=== PATIENT | female | born 1975 | race Caucasian/White ===

== ENCOUNTER 2023-11-21 18:30 | Inpatient (IN) | payer OTHER ==
[~2023-11-21] VITALS: Ht 157.5 cm; Wt 57.2 kg
[~2023-11-21 18:30] MED LIST: PROP40TA7 PO
[2023-11-21] MEDS ORDERED: MONT-35 PO (20:17)
[2023-11-21] MEDS ORDERED: MIRA25TA PO (20:17)
[2023-11-21] MEDS ORDERED: ESTR-95 PO (20:17)
[2023-11-21] MEDS ORDERED: BUTA-318 PO (20:17)
[2023-11-21] MEDS ORDERED: CETI-450 PO (20:17)
[2023-11-21] MEDS ORDERED: GLYC1TAB27 PO (20:17)
[2023-11-21] MEDS ORDERED: OXYC-490 PO (20:17)
[2023-11-21] MEDS ORDERED: PANT-31 PO (20:17)
[2023-11-21] MEDS: LevETIRAcetam 1,000 MG in DEXTROSE 5%-WATER 100 ML IV ONE (20:52)
[2023-11-21 20:57] LABS: BASOPHILS % (AUTO) 0.3 % (0.0-2.0); EOSINOPHILS % (AUTO) 0 % (1.0-6.0); HEMATOCRIT 35.6 % (36-46); LYMPHOCYTES # (AUTO) 1.5 K/uL (1.0-4.8); LYMPHOCYTES % (AUTO) 14.7 % (22.0-44.0); MEAN CORPUSCULAR HEMOGLOBIN 35.7 pg (26.0-34.0); MEAN CORPUSCULAR HGB CONC 33.7 G/dL (31.0-37.0); MEAN CORPUSCULAR VOLUME 106 fL (80-100); MONOCYTES # (AUTO) 0.5 K/uL (0.1-1.0); MONOCYTES % (AUTO) 5.4 % (2.0-9.0); NEUTROPHILS # (AUTO) 7.9 K/uL (1.8-7.7); NEUTROPHILS % (AUTO) 79.6 % (40.0-70.0); PLATELET COUNT (AUTO) 312 K/uL (150-450); RED BLOOD CELL COUNT(AUTO) 3.36 MIL/uL (4.00-5.20); RED CELL DISTRIBUTION WIDTH 13.3 % (11.5-14.5)
[2023-11-21 21:05] LABS: ANION GAP 8 mmol/L (8-16); CALCIUM, TOTAL 8.8 mg/dL (8.8-10.5); CARBON DIOXIDE 28 mmol/L (22-29); CHLORIDE 101 mmol/L (98-107); CREATININE 0.64 mg/dL (0.60-1.30); GLOMERULAR FILTR. RATE CALC > 60 mL/min (>60); GLUCOSE,RANDOM 135 mg/dL (70-110); POTASSIUM 3.8 mmol/L (3.5-5.1); SODIUM SERUM 137 mmol/L (136-145); UREA NITROGEN, BLOOD 18 mg/dL (7-18)
[2023-11-21 21:19] LABS: ALANINE AMINOTRANSFERASE 20 U/L (12-78); ALKALINE PHOSPHATASE 90 U/L (46-116); ASPARTATE AMINOTRANSFERASE 18 U/L (15-37); BILIRUBIN,TOTAL 0.1 mg/dL (0.1-1.0); CREATINE KINASE, TOTAL ONLY 61 U/L (26-192); TOTAL PROTEIN, SERUM 7.8 g/dL (6.4-8.2)
[2023-11-21 21:26] LABS: APPEARANCE,URINE CLEAR (CLEAR); BILIRUBIN,URINE NEGATIVE (NEGATIVE); COLOR,URINE LIGHT YELLOW (YELLOW); GLUCOSE, URINE (UA) NEGATIVE (NEGATIVE); KETONES,URINE NEGATIVE (NEGATIVE); LEUKOCYTE ESTERASE ,URINE NEGATIVE (NEGATIVE); NITRATE,URINE NEGATIVE (NEGATIVE); OCCULT BLOOD,URINE TRACE (NEGATIVE); PROTEIN,URINE 30-70 mg/dL (NEGATIVE); UROBILINOGEN,URINE <=1.0 mg/dL (<=1.0)
[2023-11-21 21:33] LABS: ALCOHOL, URINE DRUG SCREEN NEGATIVE (NEGATIVE); AMPHET/METH SCREEN,URINE NEGATIVE (NEGATIVE); BARBITURATE SCREEN, URINE POSITIVE (NEGATIVE); BENZODIAZEPINES SCREEN,URINE NEGATIVE (NEGATIVE); CANNABINOID SCREEN,URINE NEGATIVE (NEGATIVE); COCAINE SCREEN,URINE NEGATIVE (NEGATIVE); METHADONE SCREEN, URINE NEGATIVE (NEGATIVE); OPIATE SCREEN,URINE POSITIVE (NEGATIVE); PHENCYCLIDINE SCREEN,URINE NEGATIVE (NEGATIVE)
[2023-11-21 21:37] LABS: BACTERIA,URINE None Seen /HPF (None Seen); RBC,URINE 0-2 /HPF (0-2); SQUAMOUS EPITHELIAL CELL,UR Rare /LPF (None Seen); WBC,URINE 0-2 /HPF (0-5)
[2023-11-21 21:39] LABS: RBC MORPHOLOGY COMMENT ABNORMAL RBC MORPH
[2023-11-21] MEDS: ACETAMINOPHEN 325 MG TABLET PO PRN (22:09)
[2023-11-21 22:10] LABS: COVID AG,FIA SOURCE NASAL SWAB
[2023-11-21 22:28] LABS: SARS-COV2 (COVID) ANTIGEN,FIA Negative (Negative)
[2023-11-22 00:27] VITALS: BP 119/61; PULSE 90; RESP 18; TEMP 98
[2023-11-22 04:53] VITALS: BP 102/70; PULSE 90; RESP 18; TEMP 98.1
[2023-11-22 06:48] LABS: BASOPHILS % (AUTO) 0.6 % (0.0-2.0); EOSINOPHILS % (AUTO) 0.1 % (1.0-6.0); HEMATOCRIT 33.1 % (36-46); HEMOGLOBIN 11.2 g/dL (12.0-16.0); LYMPHOCYTES # (AUTO) 2.1 K/uL (1.0-4.8); LYMPHOCYTES % (AUTO) 41.1 % (22.0-44.0); MEAN CORPUSCULAR HEMOGLOBIN 35.9 pg (26.0-34.0); MEAN CORPUSCULAR VOLUME 106 fL (80-100); MONOCYTES # (AUTO) 0.5 K/uL (0.1-1.0); MONOCYTES % (AUTO) 9.2 % (2.0-9.0); NEUTROPHILS # (AUTO) 2.5 K/uL (1.8-7.7); PLATELET COUNT (AUTO) 287 K/uL (150-450); RED BLOOD CELL COUNT(AUTO) 3.14 MIL/uL (4.00-5.20); RED CELL DISTRIBUTION WIDTH 13.1 % (11.5-14.5); WHITE BLOOD COUNT (AUTO) 5.1 K/uL (4.5-11.0)
[2023-11-22 07:16] LABS: ANION GAP 8 mmol/L (8-16); CALCIUM, TOTAL 8.7 mg/dL (8.8-10.5); CARBON DIOXIDE 28 mmol/L (22-29); CHLORIDE 102 mmol/L (98-107); CREATININE 0.58 mg/dL (0.60-1.30); GLOMERULAR FILTR. RATE CALC > 60 mL/min (>60); GLUCOSE,RANDOM 97 mg/dL (70-110); POTASSIUM 3.4 mmol/L (3.5-5.1); SODIUM SERUM 137 mmol/L (136-145); UREA NITROGEN, BLOOD 11 mg/dL (7-18)
[2023-11-22 08:20] VITALS: BP 121/81; PULSE 81; RESP 19; TEMP 98
[2023-11-22 08:20] LABS: RBC MORPHOLOGY COMMENT ABNORMAL RBC MORPH
[2023-11-22] MEDS: CETIRIZINE HCL 10 MG TABLET PO SCH (08:26)
[2023-11-22] MEDS: LevETIRAcetam 500 MG in DEXTROSE 5%-WATER 100 ML IV SCH (08:26)
[2023-11-22] MEDS: PANTOPRAZOLE SODIUM 40 MG DR TABLET PO SCH (08:26)
[2023-11-22] MEDS ORDERED: SODIUM CHLORIDE 0.9% 500 ML IV ONE (08:29)
[2023-11-22 11:20] VITALS: BP 113/80; PULSE 84; RESP 18; TEMP 98.2
[2023-11-22] MEDS ORDERED: KETOROLAC TROMETHAMINE 15 MG/ML VIAL IM SCH (15:15)
[2023-11-22] MEDS: HYDROmorphone HCL 2 MG/ML SYRINGE IM ONE (15:15)
[2023-11-22 15:25] VITALS: BP 101/68; PULSE 92; RESP 19; TEMP 98
[2023-11-22] MEDS ORDERED: LORazepam 2 MG/ML VIAL ONE (15:36)
[2023-11-22] MEDS: LORazepam 2 MG/ML VIAL IVP ONE (16:31)
[2023-11-22] MEDS: LIDOCAINE 5% TRANSDERMAL PATCH TD ONE (17:19)
[2023-11-22 20:00] VITALS: BP 107/71; PULSE 105; RESP 18; TEMP 98
[2023-11-22] MEDS: LevETIRAcetam 500 MG TABLET PO SCH (20:15)
[2023-11-22] MEDS: POTASSIUM CHLORIDE 20 MEQ ER TABLET PO PRN (21:29)
[2023-11-22] MEDS ORDERED: POTASSIUM CHL 10 MEQ/WATER 50 ML IV PRN (21:30)
[2023-11-22] MEDS: HEPARIN SODIUM,PORCINE 5,000 UNITS/ML VIAL SQ SCH (23:44)
[2023-11-23] VITALS: BP 109/74; PULSE 98; RESP 18; TEMP 97.9
[2023-11-23 04:00] VITALS: BP 107/76; PULSE 105; RESP 19; TEMP 97.9
[2023-11-23 07:18] VITALS: BP 106/82; PULSE 113; RESP 18; TEMP 98.3
[2023-11-23] MEDS: IBUPROFEN 600 MG TABLET PO PRN (08:51)
[2023-11-23 11:51] VITALS: BP 109/75; PULSE 99; RESP 18; TEMP 98.2
[2023-11-23] MEDS ORDERED: LEVE500T8 PO (15:00)
[2023-11-23] MEDS ORDERED: LEVE750T35 PO (15:10)
== END 2023-11-23 15:45 | disposition home or self-care (01) | DRG 53 ==
LOC: EMS 18:54 → 5S 22:08
PROVIDERS: ADMIT Internal Medicine; ATTEND Internal Medicine
DX: G40.409 Other generalized epilepsy and epileptic syndromes, not intractable, without status epilepticus (principal); D64.9 Anemia, unspecified; G43.909 Migraine, unspecified, not intractable, without status migrainosus; R00.0 Tachycardia, unspecified; R73.9 Hyperglycemia, unspecified; R80.9 Proteinuria, unspecified; F41.9 Anxiety disorder, unspecified; Z20.822 Contact with and (suspected) exposure to COVID-19; K21.9 Gastro-esophageal reflux disease without esophagitis; M54.81 Occipital neuralgia; M79.18 Myalgia, other site; Z79.899 Other long term (current) drug therapy; Z87.442 Personal history of urinary calculi; Z88.8 Allergy status to other drugs, medicaments and biological substances; Z88.5 Allergy status to narcotic agent; Z88.2 Allergy status to sulfonamides; Z90.710 Acquired absence of both cervix and uterus; Z90.49 Acquired absence of other specified parts of digestive tract; Z98.891 History of uterine scar from previous surgery; Z98.51 Tubal ligation status
CPT/HCPCS: 70450; 70551; 80048; 80053; 80307; 81001; 82550; 83735; 84132; 84703; 85025; 93005; 95816; 99291; G0378; J0712; J1644; J2060; J7040; J7060